=== PATIENT | female | born 1955 | race Hispanic/Latino ===

== ENCOUNTER → 2025-02-19 | Outpatient (CLI) | payer OTHER ==
--- NOTE | 2025-02-19 14:05 | HMCIMG ---
EXAM: US Abdomen complete CLINICAL HISTORY: 69-year-old female with unspecified abdominal pain. TECHNIQUE: Real-time ultrasound of the abdomen (complete) with image documentation. COMPARISON: None provided. FINDINGS: LIVER: Size: 15.8 cm. Echogenicity is slightly increased, suggestive of mild hepatic steatosis. No focal hepatic lesion identified. GALLBLADDER: Status post cholecystectomy. COMMON BILE DUCT: Diameter: 5 mm. Within normal limits for post-cholecystectomy state. PANCREAS: Visualized portions appear within normal limits. KIDNEYS: Right kidney: Size is 11.4 x 4.9 x 3.9 cm. Normal cortical echogenicity and corticomedullary differentiation. No hydronephrosis or mass noted. Left kidney: Size is 10.5 x 4.1 x 4.6 cm. Normal echogenicity and contour. No evidence of obstruction or mass. SPLEEN: Size: 13.3 x 3.4 x 3.7 cm. Within normal size limits. Homogeneous echotexture. AORTA: Within normal limits. IVC: Within normal limits. SOFT TISSUES: Presence of increased intestinal gas in the mid-abdomen, corresponding to reported pain area. No sonographic evidence of acute intra-abdominal pathology. IMPRESSION: 1. No sonographic evidence of acute intra-abdominal pathology. 2. Mild hepatic steatosis. /[place]
== END | disposition home or self-care (01) ==
LOC: RAH 09:25
PROVIDERS: ATTEND Internal Medicine
DX: K76.0 Fatty (change of) liver, not elsewhere classified (principal); R10.9 Unspecified abdominal pain; Z90.49 Acquired absence of other specified parts of digestive tract
CPT/HCPCS: 76700